=== PATIENT | male | born 1990 | race Caucasian/White ===

== ENCOUNTER 2019-01-31 07:32 | Emergency (ER) | payer SELFPAY ==
[~2019-01-31] VITALS: Ht 188 cm; Wt 66.8 kg
[2019-01-31 08:04] VITALS: BP 133/86
== END 2019-01-31 08:14 | disposition home or self-care (01) | DRG 552 ==
LOC: ED 07:32
DX: M53.3 Sacrococcygeal disorders, not elsewhere classified (principal); F17.210 Nicotine dependence, cigarettes, uncomplicated

== ENCOUNTER 2019-04-17 13:14 | Emergency (ER) | payer SELFPAY ==
[~2019-04-17] VITALS: Ht 188 cm; Wt 67.0 kg
[2019-04-17 14:00] VITALS: BP 118/75
== END 2019-04-17 14:00 | disposition home or self-care (01) | DRG 552 ==
LOC: ED 13:14
DX: M54.5 Low back pain (principal); F17.210 Nicotine dependence, cigarettes, uncomplicated